=== PATIENT | female | born 1980 ===

== ENCOUNTER 2018-12-15 13:33 | Emergency (ER) | payer MEDICAID ==
[~2018-12-15] VITALS: Ht 160 cm; Wt 59.1 kg
[2018-12-15 13:53] VITALS: BP 155/91; TEMP 97.9
[2018-12-15] MEDS ORDERED: NEIGHBOR PH TP (15:06)
[2018-12-15] MEDS ORDERED: ELIMITE TOP (15:06)
[2018-12-15] MEDS ORDERED: STROMECTOL3 MG PO (15:06)
[2018-12-15 15:44] VITALS: PULSE 99
== END 2018-12-15 15:44 | disposition home or self-care (01) ==
LOC: COL.ER 13:33
DX: B86 Scabies (principal)